=== PATIENT | male | born 1940 | race Caucasian/White ===

== ENCOUNTER → 2024-05-10 07:28 | Outpatient (REF) | payer MEDICARE, OTHER, SELFPAY | LOC: HWRCS 07:28 | PROVIDERS: ATTENDING PHYSICIAN Internal Medicine Cardiovascular Disease; FAMILY PHYSICIAN Internal Medicine | DX: I48.0 Paroxysmal atrial fibrillation (principal) | CPT/HCPCS: 78452; 93017; A9500; J2785 ==

== ENCOUNTER 2024-05-19 07:59 | Day surgery (SDC) | payer MEDICARE, OTHER, SELFPAY ==
[2024-05-19] VITALS (12 sets, daily range): BP systolic 104–134; BP diastolic 57–90; BMI 27.9
[2024-05-19] MEDS: NSS 235 ML IV (08:46)
[2024-05-19 12:15] LABS: ACT-LR - POC 250 Seconds (116-155)
[2024-05-19] MEDS: LASIX 20 MG IV (13:07)
--- NOTE | 2024-05-19 20:54 | ITS.CL.CATH ---
Hazardous Material Technician - Catheterization
Cardiac Catheterization
Procedure Report:
LEFT HEART CATHETERIZATION
Date of Procedure: May 19, 2024
Referring: Troy Reyes MD
PROCEDURES:
1. Left heart catheterization, coronary angiogram.
2. Ultrasound-guided access.
3. Functional physiologic testing with IFR of proximal to mid LAD.
INDICATION: Progressive dyspnea on exertion with abnormal stress test
ACCESS: Right radial artery, 10 cc of air.
Ultrasound was utilized for vascular access. The radial artery was visualized under ultrasound, and the vessel was patent and pulsatile. An image was stored permanently in the patient's medical record. Under direct ultrasound guidance, a 6 [place]
sheath was inserted into the artery using a micropuncture kit through a modified Seldinger technique.
HEMODYNAMICS : (mmHg)
AO (s/d) : 134/70
LV (s/d) : 138/9
LVEDP : 14
CORONARY FINDINGS
DOMINANCE: Right
LEFT MAIN: The left main artery is a large-caliber short vessel which gives rise to the left anterior descending artery and the left circumflex artery. There is minimal luminal irregularities.
LEFT ANTERIOR DESCENDING: The left anterior descending artery has diffuse proximal to mid up to 70% stenosis. iFR was performed which was abnormal at 0.70. Ekcc-bu-jprxc collaterals are noted.
CIRCUMFLEX: The left circumflex artery is a medium caliber vessel which gives rise to 3 major obtuse marginal branches. OM1 is a small caliber vessel with diffuse 90% stenosis from the ostium to the proximal vessel. This is not a PCI target. OM 2
is a medium caliber vessel with diffuse up to 85% stenosis. This is a possible PCI and bypass target.
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
HEMODYNAMIC ASSESSMENT OF THE PROXIMAL TO MID LAD WITH A [employer] OMNI WIRE: The origin of the left coronary artery was cannulated with a 6 Fr EBU 3.5 guide catheter. Intravenous heparin was administered and the ACT was followed during the
procedure. Two hundred micrograms of intracoronary nitroglycerin was given through the guide catheter. A [employer] Omni wire was advanced to the guide catheter tip and normalized just outside guide catheter pressure. The Omni wire was then
carefully manipulated across the stenosis in the proximal to mid LAD with the iFR below the ischemic threshold serially measuring 0.7, 0.7, 0.7. The Omni wire was then pulled back to the guide catheter where the Pd/Pa measured 1.0 confirming no
baseline drift in pressure readings
SEDATION: 42 minutes of procedural sedation was utilized. An independent medical practice manager was present to assist with and help manage the patient's level of consciousness and physiologic status.
RADIATION SUMMARY: Fluoro Time (min): 6.2, Dose (mGy): 569.90, DAP (Gy.cm2) : 41 point
Closure Device: Vascular band over right radial artery, 10 cc of air.
CONCLUSIONS
1. 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
2. High normal LVEDP.
RECOMMENDATIONS
1. Heart team discussion in regards to candidacy/risk with CABG versus multivessel PCI and medical management of RCA, which is not a PCI target.
2. Aggressive management of cardiovascular risk factors.
3. Wean radial band per protocol.
4. Eventual referral for outpatient cardiac rehab
Copy to: Troy Reyes
Marcie Damon MD, FACC, [facility]
== END 2024-05-19 16:30 | disposition home or self-care (01) ==
LOC: CATH 07:59
PROVIDERS: ATTENDING PHYSICIAN Internal Medicine Interventional Cardiology; FAMILY PHYSICIAN Internal Medicine; OTHER PHYSICIAN Internal Medicine Cardiovascular Disease
DX: I48.0 Paroxysmal atrial fibrillation (principal); I25.10 Atherosclerotic heart disease of native coronary artery without angina pectoris; R06.02 Shortness of breath; R94.39 Abnormal result of other cardiovascular function study; I10 Essential (primary) hypertension; E78.5 Hyperlipidemia, unspecified; E03.9 Hypothyroidism, unspecified; K21.9 Gastro-esophageal reflux disease without esophagitis; Z87.891 Personal history of nicotine dependence; Z79.82 Long term (current) use of aspirin
CPT/HCPCS: 93799; 99152; 99153; C1769; C1894; 76937; 93458; Q9967